=== PATIENT | female | born 1940 | race Caucasian/White ===

== ENCOUNTER 2017-12-11 10:04 | Emergency (ER) | payer OTHER, BC ==
[~2017-12-11] VITALS: Ht 180.3 cm; Wt 137.4 kg
[2017-12-11 10:40] LABS: HEMATOCRIT 37.5 % (36.0-46.0); HEMOGLOBIN 11.5 G/DL (11.9-15.5); MCH 32.7 PG (29.0-34.0); MCHC 30.7 G/DL (30.0-36.0); MCV 106.5 FL (83-99); PLATELET COUNT 133 K/uL (156-360); RBC DIS.WIDTH-CV 12.5 % (11.8-14.6); RBC DIS.WIDTH-SD 48.9 % (39-53); RED BLOOD COUNT 3.52 M/uL (3.80-5.20); WHITE BLOOD COUNT 6.1 K/uL (4.1-10.2)
[2017-12-11 10:48] LABS: ALBUMIN 3.7 g/dL (3.2-4.8); CHLORIDE 90 mEq/L (99-109); POTASSIUM 4.6 mEq/L (3.7-5.4); SODIUM 143 mEq/L (136-147)
[2017-12-11 10:51] LABS: GLUCOSE 113 mg/dL (70-99); TOTAL PROTEIN 6.9 g/dL (6.4-8.3)
[2017-12-11 10:53] LABS: CARBON DIOXIDE (BICARBONATE) > 40.0 mEq/L (20-31); TOTAL BILIRUBIN 0.8 mg/dL (0.0-1.0)
[2017-12-11 10:54] LABS: ALKALINE PHOSPHATASE 93 IU/L (3-129); CREATININE 0.7 mg/dL (0.6-1.3); GFR ESTIMATE (CALCULATED) > 59 mL/min/
[2017-12-11 10:56] LABS: AST (GOT) 17 IU/L (2-34)
[2017-12-11 10:57] LABS: ALT (GPT) 9 IU/L (3-49)
[2017-12-11 11:03] LABS: TROP-I INTERPRETATION NEGATIVE; TROPONIN-I < 0.01 ng/mL (0.0-0.30)
[2017-12-11 11:15] LABS: UREA NITROGEN (BUN) 15 mg/dL (9-23)
[2017-12-11 11:26] LABS: APPEARANCE SL.HAZY ((CLEAR)); BILIRUBIN NEGATIVE; BLOOD NEGATIVE; COLOR YELLOW ((YELLOW)); GLUCOSE (STRIP) NEGATIVE; KETONES NEGATIVE; LEUKOCYTES NEGATIVE; NITRITE NEGATIVE; PROTEIN (STRIP) 30; SPECIFIC GRAVITY 1.016 (1.000-1.030)
[2017-12-11 11:37] LABS: BACTERIA 3+ /HPF; EPITHELIAL CELLS 2+ /HPF; HYALINE CASTS 0-5 /LPF; MUCUS 1+ /LPF; RED BLOOD CELLS 0-5 /HPF (0-5); UCUL ADDED? YES; WHITE BLOOD CELLS 0-5 /HPF (0-5)
[2017-12-11 13:18] VITALS: BP 141/108
== END 2017-12-11 13:35 | disposition home or self-care (01) ==
LOC: EME 10:04
PROVIDERS: Emergency Medicine
DX: H92.02 Otalgia, left ear (principal)
CPT/HCPCS: 71045; 80053; 81003; 82948; 84484; 85027; 87086; 93005; 99281; 99284; J7030

== ENCOUNTER 2018-01-01 08:42 | Inpatient (IN) | payer OTHER, BC ==
[~2018-01-01] VITALS: Ht 165.1 cm; Wt 149.3 kg
[2018-01-01] VITALS (15 sets, daily range): BP systolic 106–176; BP diastolic 65–111
[2018-01-01 09:32] LABS: BASOPHIL (%) 0.4 % (0-1); EOSINOPHIL (%) 0.1 % (0-5); HEMATOCRIT 31.8 % (36.0-46.0); IMMATURE GRANULOCYTE (%) 1.4 % (0.0-0.7); LYMPHOCYTE (%) 13.1 % (15-42); LYMPHOCYTE COUNT 1.1 K/uL (1.0-2.8); MCH 32.9 PG (29.0-34.0); MCHC 29.9 G/DL (30.0-36.0); MONOCYTE COUNT 0.5 K/uL (0-0.8); NEUTROPHIL COUNT 6.3 K/uL (1.8-6.4); PLATELET COUNT 130 K/uL (156-360); RBC DIS.WIDTH-CV 12.6 % (11.8-14.6); RED BLOOD COUNT 2.89 M/uL (3.80-5.20)
[2018-01-01 09:33] LABS: HEMOGLOBIN 9.5 G/DL (11.9-15.5)
[2018-01-01 09:34] LABS: APPEARANCE CLEAR ((CLEAR)); BILIRUBIN NEGATIVE; BLOOD NEGATIVE; COLOR YELLOW ((YELLOW)); GLUCOSE (STRIP) NEGATIVE; KETONES 5; LEUKOCYTES NEGATIVE; NITRITE NEGATIVE; PROTEIN (STRIP) 30; SPECIFIC GRAVITY 1.017 (1.000-1.030); UCUL ADDED? NO
[2018-01-01 09:38] LABS: PTT 22.9 SEC (25-37)
[2018-01-01 09:40] LABS: AMYLASE 21 IU/L (1-118); CHLORIDE 98 mEq/L (99-109); POTASSIUM 4.2 mEq/L (3.7-5.4); SODIUM 144 mEq/L (136-147)
[2018-01-01 09:42] LABS: GLUCOSE 142 mg/dL (70-99)
[2018-01-01 09:44] LABS: AMPHETAMINE NEGATIVE (500 ng/mL); COCAINE NEGATIVE (150 ng/mL); METHAMPHETAMINE NEGATIVE (500 ng/mL); OPIATES (MORPHINE) NEGATIVE (100 ng/mL); PHENCYCLIDINE NEGATIVE (25 ng/mL); THC CANNABINOIDS NEGATIVE (50 ng/mL)
[2018-01-01 09:45] LABS: BARBITURATES NEGATIVE (200 ng/mL); BENZODIAZEPINES NEGATIVE (150 ng/mL); BUPRENORPHINE NEGATIVE (10 ng/mL); METHADONE NEGATIVE (200 ng/mL); OXYCODONE NEGATIVE (100 ng/mL); PROPOXYPHENE NEGATIVE (300 ng/mL); TRICYCLIC ANTIDEPRESSANTS NEGATIVE (300 ng/mL)
[2018-01-01 09:45] LABS: SERUM ETHYL ALCOHOL < 10 mg/dL
[2018-01-01 09:46] LABS: CREATININE 0.6 mg/dL (0.6-1.3); GFR ESTIMATE (CALCULATED) > 59 mL/min/
[2018-01-01 09:47] LABS: UREA NITROGEN (BUN) 18 mg/dL (9-23)
[2018-01-01 09:48] LABS: COMMENTS - BLOOD GASES A+C+; DEVICE VENT; FI02 50 %; MECHANICAL RATE 18 resp/min; MODE AC; PEEP 5 CM/H20; SITE RR; TIDAL VOLUME 450 ML; TOTAL RESP RATE 18 resp/min
[2018-01-01 09:49] LABS: LIPASE 10 U/L (1.0-51.0)
[2018-01-01 09:49] LABS: BASE EXCESS 20.7 mEq/L (-3 to +3); BICARBONATE 48.5 mEq/L (22-26); CARBOXY HGB 2.8 % (0-5); METHEMOGLOBIN 1.1 % (0-1.5); PCO2 73 mm Hg (35-45); PO2 56 mm Hg (80-100); pH 7.43 (7.35-7.45)
[2018-01-01 09:51] LABS: TROP-I INTERPRETATION NEGATIVE; TROPONIN-I 0.02 ng/mL (0.0-0.30)
[2018-01-01 11:55] LABS: PCO2 67 mm Hg (35-45); PO2 96 mm Hg (80-100); pH 7.46 (7.35-7.45)
[2018-01-01 11:56] LABS: BASE EXCESS 20.5 mEq/L (-3 to +3); BICARBONATE 47.7 mEq/L (22-26); CARBOXY HGB 2.3 % (0-5); COMMENTS - BLOOD GASES A+C+; DEVICE VENT; FI02 60 %; MECHANICAL RATE 18 resp/min; METHEMOGLOBIN 1.2 % (0-1.5); MODE AC; PEEP 5 CM/H20; SITE LR; TIDAL VOLUME 450 ML; TOTAL RESP RATE 18 resp/min
[2018-01-01 12:12] LABS: CHLORIDE 91 mEq/L (99-109); SODIUM 143 mEq/L (136-147)
[2018-01-01 12:13] LABS: MAGNESIUM 2.5 mg/dL (1.3-2.7)
[2018-01-01 12:14] LABS: GLUCOSE 129 mg/dL (70-99)
[2018-01-01 12:15] LABS: POTASSIUM 5.4 mEq/L (3.7-5.4)
[2018-01-01 12:18] LABS: CREATININE 0.7 mg/dL (0.6-1.3); GFR ESTIMATE (CALCULATED) > 59 mL/min/
[2018-01-01 12:19] LABS: UREA NITROGEN (BUN) 20 mg/dL (9-23)
[2018-01-01 12:21] LABS: CREATINE KINASE 112 IU/L (1-294)
[2018-01-01 12:27] LABS: CARBON DIOXIDE (BICARBONATE) > 40.0 mEq/L (20-31)
[2018-01-01 12:33] LABS: TROP-I INTERPRETATION NEGATIVE; TROPONIN-I 0.04 ng/mL (0.0-0.30)
[2018-01-01 13:20] LABS: HIGH-SENS C-REACTIVE PROTEIN 0.63 MG/DL (0.02-0.20); TRIGLYCERIDES 112 MG/DL (Normal: <150)
[2018-01-01 19:47] LABS: CHLORIDE 98 mEq/L (99-109); SODIUM 142 mEq/L (136-147)
[2018-01-01 19:50] LABS: GLUCOSE 148 mg/dL (70-99)
[2018-01-01 19:53] LABS: CREATININE 0.6 mg/dL (0.6-1.3); GFR ESTIMATE (CALCULATED) > 59 mL/min/
[2018-01-01 19:54] LABS: UREA NITROGEN (BUN) 17 mg/dL (9-23)
[2018-01-01 20:06] LABS: MAGNESIUM 1.8 mg/dL (1.3-2.7); PHOSPHORUS 1.2 mg/dL (2.5-4.9); POTASSIUM 4.1 mEq/L (3.7-5.4)
[2018-01-01 22:53] LABS: TOTAL PROTEIN 5.8 g/dL (6.4-8.3)
[2018-01-01 22:55] LABS: TOTAL BILIRUBIN 1.1 mg/dL (0.0-1.0)
[2018-01-01 22:56] LABS: ALKALINE PHOSPHATASE 82 IU/L (3-129)
[2018-01-01 22:58] LABS: AST (GOT) 34 IU/L (2-34); DIRECT BILIRUBIN 0.6 mg/dL (0.0-0.3)
[2018-01-01 22:59] LABS: ALT (GPT) 18 IU/L (3-49)
[2018-01-02] VITALS (25 sets, daily range): BP systolic 99–146; BP diastolic 46–82
[2018-01-02 06:41] LABS: BASOPHIL (%) 0.1 % (0-1); EOSINOPHIL (%) 0 % (0-5); HEMATOCRIT 34.4 % (36.0-46.0); HEMOGLOBIN 11.1 G/DL (11.9-15.5); IMMATURE GRANULOCYTE (%) 0.5 % (0.0-0.7); LYMPHOCYTE (%) 3.9 % (15-42); LYMPHOCYTE COUNT 0.3 K/uL (1.0-2.8); MCH 33.2 PG (29.0-34.0); MCHC 32.3 G/DL (30.0-36.0); MONOCYTE (%) 3.4 % (3-12); MONOCYTE COUNT 0.3 K/uL (0-0.8); NEUTROPHIL (%) 92.1 % (45-76); NEUTROPHIL COUNT 7.6 K/uL (1.8-6.4); PLATELET COUNT 121 K/uL (156-360); RBC DIS.WIDTH-CV 12.5 % (11.8-14.6); RBC DIS.WIDTH-SD 46.7 % (39-53); RED BLOOD COUNT 3.34 M/uL (3.80-5.20); WHITE BLOOD COUNT 8.2 K/uL (4.1-10.2)
[2018-01-02 09:00] LABS: COMMENTS - BLOOD GASES A+C+; DEVICE 980 PB; FI02 50 %; MECHANICAL RATE 18 resp/min; MODE AC; PCO2 49 mm Hg (35-45); PEEP 5 CM/H20; PO2 62 mm Hg (80-100); SITE RR; TIDAL VOLUME 450 ML; TOTAL RESP RATE 18 resp/min; pH 7.48 (7.35-7.45)
[2018-01-02 09:01] LABS: BASE EXCESS 11.4 mEq/L (-3 to +3); BICARBONATE 36.5 mEq/L (22-26); CARBOXY HGB 1.4 % (0-5); METHEMOGLOBIN 1.1 % (0-1.5); O2 SATURATION (CALCULATED) 92.4 % (95-99)
[2018-01-02 13:12] LABS: CHLORIDE 98 MEQ/L (99-109); CREATININE 0.4 MG/DL (0.6-1.3); GFR ESTIMATE (CALCULATED) > 59 mL/min/; GLUCOSE 136 mg/dL (70-99); MAGNESIUM 2.1 mg/dl (1.3-2.7); PHOSPHORUS 4.2 mg/dL (2.5-4.9); SODIUM 143 MEQ/L (136-147); UREA NITROGEN (BUN) 16 mg/dL (9-23)
[2018-01-02 13:19] LABS: POTASSIUM 2.9 MEQ/L (3.7-5.4)
[2018-01-02 17:06] LABS: COMMENTS - BLOOD GASES A+C+; SITE RR
[2018-01-02 17:07] LABS: DEVICE 980 PB; FI02 50 %; MECHANICAL RATE 18 resp/min; MODE AC; PCO2 46 mm Hg (35-45); PEEP 5 CM/H20; TIDAL VOLUME 450 ML; TOTAL RESP RATE 18 resp/min
[2018-01-02 17:08] LABS: CARBOXY HGB 1.3 % (0-5); O2 SATURATION (CALCULATED) 95.7 % (95-99); PO2 74 mm Hg (80-100)
[2018-01-02 17:09] LABS: BASE EXCESS 11.4 mEq/L (-3 to +3); BICARBONATE 35.9 mEq/L (22-26); METHEMOGLOBIN 0.7 % (0-1.5)
[2018-01-03] VITALS (27 sets, daily range): BP systolic 98–176; BP diastolic 49–86
[2018-01-03 05:10] LABS: BASOPHIL (%) 0.1 % (0-1); EOSINOPHIL (%) 0 % (0-5); HEMOGLOBIN 10.2 G/DL (11.9-15.5); IMMATURE GRANULOCYTE (%) 0.6 % (0.0-0.7); LYMPHOCYTE (%) 1.4 % (15-42); LYMPHOCYTE COUNT 0.2 K/uL (1.0-2.8); MCHC 31.9 G/DL (30.0-36.0); MCV 100.3 FL (83-99); MONOCYTE (%) 4.7 % (3-12); MONOCYTE COUNT 0.6 K/uL (0-0.8); NEUTROPHIL (%) 93.2 % (45-76); NEUTROPHIL COUNT 11.8 K/uL (1.8-6.4); PLATELET COUNT 124 K/uL (156-360); RBC DIS.WIDTH-CV 13.4 % (11.8-14.6); RBC DIS.WIDTH-SD 49.3 % (39-53); RED BLOOD COUNT 3.19 M/uL (3.80-5.20); WHITE BLOOD COUNT 12.7 K/uL (4.1-10.2)
[2018-01-03 07:55] LABS: CHLORIDE 101 MEQ/L (99-109); CREATINE KINASE 100 IU/L (1-294); CREATININE 0.5 MG/DL (0.6-1.3); GFR ESTIMATE (CALCULATED) > 59 mL/min/; GLUCOSE 144 mg/dL (70-99); POTASSIUM 3.4 MEQ/L (3.7-5.4); SODIUM 142 MEQ/L (136-147); UREA NITROGEN (BUN) 17 mg/dL (9-23)
[2018-01-04] VITALS (24 sets, daily range): BP systolic 127–169; BP diastolic 63–101
[2018-01-04 06:07] LABS: BASOPHIL (%) 0.2 % (0-1); EOSINOPHIL (%) 0 % (0-5); HEMATOCRIT 34.2 % (36.0-46.0); HEMOGLOBIN 10.8 G/DL (11.9-15.5); IMMATURE GRANULOCYTE (%) 0.6 % (0.0-0.7); LYMPHOCYTE (%) 1.7 % (15-42); LYMPHOCYTE COUNT 0.2 K/uL (1.0-2.8); MCH 31.8 PG (29.0-34.0); MCHC 31.6 G/DL (30.0-36.0); MCV 100.6 FL (83-99); MONOCYTE (%) 3.1 % (3-12); MONOCYTE COUNT 0.4 K/uL (0-0.8); NEUTROPHIL (%) 94.4 % (45-76); NEUTROPHIL COUNT 11.4 K/uL (1.8-6.4); PLATELET COUNT 114 K/uL (156-360); RBC DIS.WIDTH-CV 13.8 % (11.8-14.6); RBC DIS.WIDTH-SD 50.5 % (39-53)
[2018-01-05] VITALS (23 sets, daily range): BP systolic 142–171; BP diastolic 67–94
[2018-01-05 05:19] LABS: BASOPHIL (%) 0.1 % (0-1); EOSINOPHIL (%) 0 % (0-5); HEMATOCRIT 37.3 % (36.0-46.0); HEMOGLOBIN 11.7 G/DL (11.9-15.5); IMMATURE GRANULOCYTE (%) 1.2 % (0.0-0.7); LYMPHOCYTE COUNT 0.2 K/uL (1.0-2.8); MCH 31.9 PG (29.0-34.0); MCHC 31.4 G/DL (30.0-36.0); MCV 101.6 FL (83-99); MONOCYTE (%) 4.2 % (3-12); MONOCYTE COUNT 0.5 K/uL (0-0.8); NEUTROPHIL (%) 92.5 % (45-76); NEUTROPHIL COUNT 10.3 K/uL (1.8-6.4); PLATELET COUNT 108 K/uL (156-360); RBC DIS.WIDTH-CV 13.5 % (11.8-14.6); RBC DIS.WIDTH-SD 50.8 % (39-53); RED BLOOD COUNT 3.67 M/uL (3.80-5.20); WHITE BLOOD COUNT 11.1 K/uL (4.1-10.2)
[2018-01-06] VITALS (9 sets, daily range): BP systolic 128–168; BP diastolic 57–88
[2018-01-06 05:53] LABS: BASOPHIL (%) 0.2 % (0-1); EOSINOPHIL (%) 0 % (0-5); HEMOGLOBIN 11.2 G/DL (11.9-15.5); IMMATURE GRANULOCYTE (%) 2.3 % (0.0-0.7); LYMPHOCYTE (%) 2.5 % (15-42); LYMPHOCYTE COUNT 0.3 K/uL (1.0-2.8); MCH 31.4 PG (29.0-34.0); MCHC 31.1 G/DL (30.0-36.0); MCV 100.8 FL (83-99); MONOCYTE (%) 5.8 % (3-12); MONOCYTE COUNT 0.7 K/uL (0-0.8); NEUTROPHIL (%) 89.2 % (45-76); NEUTROPHIL COUNT 11.2 K/uL (1.8-6.4); PLATELET COUNT 109 K/uL (156-360); RBC DIS.WIDTH-CV 13.6 % (11.8-14.6); RBC DIS.WIDTH-SD 50.7 % (39-53); RED BLOOD COUNT 3.57 M/uL (3.80-5.20); WHITE BLOOD COUNT 12.6 K/uL (4.1-10.2)
== END 2018-01-06 14:06 | DRG 208 ==
LOC: EME 08:42 → ENRESERV 09:54 → EDOF 09:55 → 4WEST 09:55 → ENRESERV 10:59 → 4WEST 12:06
PROVIDERS: Emergency Medicine; Internal Medicine
PROC: 5A09357 Assistance with Respiratory Ventilation, Less than 24 Consecutive Hours, Continuous Positive Airway Pressure (ICD-10-PCS; principal; 2018-01-01)
PROC: 5A1945Z Respiratory Ventilation, 24-96 Consecutive Hours (ICD-10-PCS; principal; 2018-01-01)
PROC: 0BH17EZ Insertion of Endotracheal Airway into Trachea, Via Natural or Artificial Opening (ICD-10-PCS; principal; 2018-01-01)
PROC: 5A12012 Performance of Cardiac Output, Single, Manual (ICD-10-PCS; principal; 2018-01-01)
PROC: 02HV33Z Insertion of Infusion Device into Superior Vena Cava, Percutaneous Approach (ICD-10-PCS; 2018-01-01)
PROC: 5A1945Z Respiratory Ventilation, 24-96 Consecutive Hours (ICD-10-PCS; 2018-01-04)
PROC: 0BH17EZ Insertion of Endotracheal Airway into Trachea, Via Natural or Artificial Opening (ICD-10-PCS; 2018-01-04)
PROC: 02HV33Z Insertion of Infusion Device into Superior Vena Cava, Percutaneous Approach (ICD-10-PCS; 2018-01-04)
DX: J69.0 Pneumonitis due to inhalation of food and vomit (principal); J96.21 Acute and chronic respiratory failure with hypoxia; J96.22 Acute and chronic respiratory failure with hypercapnia; J98.6 Disorders of diaphragm; I46.8 Cardiac arrest due to other underlying condition; Z51.5 Encounter for palliative care; I27.20 Pulmonary hypertension, unspecified; I47.1 Supraventricular tachycardia; I48.91 Unspecified atrial fibrillation; I49.3 Ventricular premature depolarization; E87.8 Other disorders of electrolyte and fluid balance, not elsewhere classified; J98.11 Atelectasis; J93.9 Pneumothorax, unspecified; Z99.11 Dependence on respirator [ventilator] status; Z99.81 Dependence on supplemental oxygen; E66.01 Morbid (severe) obesity due to excess calories; Z68.43 Body mass index [BMI] 50.0-59.9, adult; I10 Essential (primary) hypertension; R41.82 Altered mental status, unspecified; E78.5 Hyperlipidemia, unspecified; H61.20 Impacted cerumen, unspecified ear
CPT/HCPCS: 36600; 70450; 71045; 71275; 74177; 80048; 80048 91; 80076; 80202; 81003; 82150; 82330; 82550; 82550 91; 82948; 83605; 83690; 83735; 83880; 84100; 84145 90; 84478; 84484; 85025; 85610; 85730; 86141; 86850; 86900; 86901; 87040; 87070; 87205; 87641; 93005; 93306; 94002; 94003; 94640; 94760; 94799; 99281; 99285; C1751; G0480; J0692; J1644; J1953; J1956; J2060; J2270; J2543; J2704; J2930; J3370; J3475; J3480; J7030; J7042; J7050